=== PATIENT | female | born 1995 | race Caucasian/White ===

== ENCOUNTER 2016-07-15 22:47 | Emergency (ER) | payer BC, OTHER ==
[~2016-07-15] VITALS: Ht 167.6 cm; Wt 49.9 kg
[2016-07-15] MEDS ORDERED: bcp (22:58)
[2016-07-15] MEDS ORDERED: NITR-65 PO (22:58)
[2016-07-15] MEDS ORDERED: PHEN-640 PO (22:58)
[2016-07-15 23:22] LABS: KETONES,URINE NEGATIVE (NEGATIVE); LEUKOCYTE ESTERASE ,URINE NEGATIVE (NEGATIVE); NITRITE,URINE POSITIVE (NEGATIVE); PH,URINE 5 (5-9); PROTEIN,URINE 2+ (NEGATIVE); UROBILINOGEN,URINE 8 MG/DL (NORMAL)
[2016-07-15 23:28] LABS: BILIRUBIN,URINE 3+ (NEGATIVE)
[2016-07-15 23:30] LABS: WBC,URINE 0-2 /HPF
[2016-07-15] MEDS ORDERED: KETOROLAC 30 MG/ML VIAL IVP STA (23:33)
[2016-07-15] MEDS ORDERED: LACTATED RINGERS 1,000 ML IV ONE (23:33)
[2016-07-15] MEDS ORDERED: ONDANSETRON 4 MG/2 ML (SDV) Z0FRAN IVP ONE (23:45)
[2016-07-15 23:53] LABS: BASOPHILS % (AUTO) 0 % (0-10); EOSINOPHILS % (AUTO) 0 % (0-10); LYMPHOCYTES # (AUTO) 1.8 X 10^3 (1.0-4.0); LYMPHOCYTES % (AUTO) 21 % (12-44); MEAN CORPUSCULAR HEMOGLOBIN 29 PG (25-34); MEAN CORPUSCULAR HGB CONC 34 G/DL (32-36); MEAN CORPUSCULAR VOLUME 85 FL (80-99); MEAN PLATELET VOLUME 9.5 FL (7.4-10.4); MONOCYTES # (AUTO) 0.6 X 10^3 (0.0-1.0); MONOCYTES % (AUTO) 7 % (0-12); NEUTROPHILS # (AUTO) 6.1 X 10^3 (1.8-7.8); NEUTROPHILS % (AUTO) 72 % (42-75); PLATELET COUNT 232 10^3/uL (130-400); RED BLOOD COUNT 4.77 10^6/uL (4.35-5.85); RED CELL DISTRIBUTION WIDTH 13.7 % (10.0-14.5); WHITE BLOOD COUNT 8.5 10^3/uL (4.3-11.0)
--- NOTE | 2016-07-15 23:58 | ED GU-Female ---
General Chief Complaint: Abdominal/GI Problems Stated Complaint: LOWER BACK PAIN,N,V Nursing Triage Note: c/o L flank pain and emesis x 2. patient reports being diagnosed with UTI today and starting meds for that Nursing Sepsis Screen: No Definite Risk Source: patient History of Present Illness Time seen by provider: 23:10 Initial Comments C/O LEFT FLANK PAIN SINCE NOON, BECAME SEVERE AROUND 2200 TONIGHT--RATES PAIN 8/ 10 BEGAN HAVING NAUSEA AND VOMITING AT 2200 WELL, WHEN PAIN BEGAN NO FEVER WAS DX WITH UTI EARLIER TODAY AT [facility]--RX MACROBID AND PYRIDIUM STATES SHE HAD SOME MILD URINARY FREQUENCY AND "SLIGHT STINGING" ON URINATION THIS AM. NO OBVIOUS BLOOD IN URINE THIS AM. TOOK PYRIDIUM THIS AFTERNOON, SO COULD NOT TELL IF THERE WAS BLOOD IN URINE AFTER TAKING THAT. NO HISTORY OF SIMILAR MOM WITH HISTORY OF KIDNEY STONES LMP 3 WEEKS AGO, ON [facility] Allergies and Home Medications Allergies Coded Allergies: Penicillins (Unverified Allergy, Intermediate, RASH, 05/09/10) Home Medications (Reported) Hydrocodone/Ibuprofen 1 Each Tablet #20 1-2 EACH PO Q4H Prescribed by: CINDI FOLEY on 07/16/16135 Nitrofurantoin Monohyd/M-Cryst 100 Mg Capsule 1 TAB PO (Reported) Ondansetron 4 Mg Tab.rapdis #10 4 MG PO Q4H Prescribed by: CINDI FOLEY on 07/16/16135 Phenazopyridine HCl 200 Mg Tablet 1 TAB PO (Reported) Constitutional: no symptoms reported Respiratory: no symptoms reported Cardiovascular: no symptoms reported Gastrointestinal: see HPI nausea vomiting Genitourinary: see HPI flank pain : No LMP: Jun 24, 2016 Musculoskeletal: see HPI back pain Skin: no symptoms reported Psychiatric/Neurological: No Symptoms Reported Endocrine: No Symptoms Reported Hematologic/Lymphatic: No Symptoms Reported Past Kvbmadm-Osxxsz-Mabuna Hx Patient Social History Alcohol Use: Denies Use Recreational Drug Use: No Smoking Status: Never a Smoker 2nd Hand Smoke Exposure: No Recent Foreign Travel: No Contact w/Someone Who Travel: No Recent Infectious Disease Expo: No Recent Hopitalizations: No Surgeries HX Surgeries: Yes (LEFT KNEE SCOPE--ACL AND MENISCUS REPAIR) Surgeries: Gallbladder, Orthopedic Respiratory Hx Respiratory Disorders: Yes Respiratory Disorders: Asthma Cardiovascular Hx Cardiac Disorders: No Neurological Hx Neurological Disorders: No Reproductive System : No Female Reproductive Disorders: Denies Genitourinary Hx Genitourinary Disorders: No Gastrointestinal Hx Gastrointestinal Disorders: Yes (BAILEY) Gastrointestinal Disorders: Gall Bladder Disease Musculoskeletal Hx Musculoskeletal Disorders: No HEENT HX ENT Disorders: No Cancer Hx Cancer: No Psychosocial Hx Psychiatric Problems: No Integumentary HX Skin/Integumentary Disorder: No Blood Transfusions Hx Blood Disorders: No Physical Exam Vital Signs Vital Sign - Last 12Hours 07/15/16 22:55 Temp 97.9 Pulse 111 Resp 18 B/P 129/101 Pulse Ox 95 Capillary Refill : Less Than 3 Seconds General Appearance: mild distress other (LOOKS UNCOMFORTABLE, PACING, HOLDING LEFT FLANK BENT AT WAIST. VOMITED SEVERAL TIMES ON ARRIVAL TO ER AND IS DRY HEAVING NOW. ) thin Cardiovascular: normal peripheral pulses regular rate, rhythm no murmur Respiratory: normal breath sounds no respiratory distress no accessory muscle use Gastrointestinal: normal bowel sounds soft no organomegaly no pulsatile mass tenderness (MILD SUPRAPUBIC) Back: no vertebral tenderness CVA tenderness (L) Extremities: normal inspection Neurologic/Psychiatric: travel cota II-XII nml as tested no motor/sensory deficits alert oriented x 3 Skin: warm/dry pallor Progress/Results/Core Measures Results/Orders Lab Results Laboratory Tests Test 07/15/16 23:10 07/15/16 23:45 Range/Units Urine Bacteria FEW H /HPF Urine Bilirubin 3+ H NEGATIVE Urine Casts NONE /LPF Urine Clarity SLIGHTLY CLOUDY Urine Color ORANGE Urine Crystals NONE /LPF Urine Culture Indicated YES Urine Glucose (UA) NEGATIVE NEGATIVE Urine Ketones NEGATIVE NEGATIVE Urine Leukocyte Esterase NEGATIVE NEGATIVE Urine Mucus LARGE H /LPF Urine Nitrite POSITIVE H NEGATIVE Urine Test NEGATIVE NEGATIVE Urine Protein 2+ H NEGATIVE Urine RBC >100 H /HPF Urine RBC (Auto) 3+ H NEGATIVE Urine Specific [place] 1.020 1.016-1.022 Urine Squamous Epithelial Cells 2-5 /HPF Urine Urobilinogen 8 H NORMAL MG/DL Urine WBC 0-2 /HPF Urine pH 5 5-9 Alanine Aminotransferase (ALT/SGPT) 14 0-55 U/L Albumin 4.5 3.2-4.5 G/DL Alkaline Phosphatase 49 40-136 U/L Amylase Level 70 25-125 U/L Anion Gap 12 5-14 MMOL/L Aspartate Amino Transf (AST/SGOT) 19 5-34 U/L BUN/Creatinine Ratio 11 Basophils # (Auto) 0.0 0.0-0.1 10^3/uL Basophils (%) (Auto) 0 0-10 % Blood Urea Nitrogen 10 7-18 MG/DL Calcium Level 9.1 8.5-10.1 MG/DL Carbon Dioxide Level 22 21-32 MMOL/L Chloride Level 109 H 98-107 MMOL/L Creatinine 0.91 0.60-1.30 MG/DL Eosinophils # (Auto) 0.0 0.0-0.3 10^3/uL Eosinophils (%) (Auto) 0 0-10 % Estimat Glomerular Filtration Rate > 60 Glucose Level 112 H 70-105 MG/DL Hematocrit 41 35-52 % Hemoglobin 13.6 11.5-16.0 G/DL Lipase 28 8-78 U/L Lymphocytes # (Auto) 1.8 1.0-4.0 X 10^3 Lymphocytes (%) (Auto) 21 12-44 % Mean Corpuscular Hemoglobin 29 25-34 PG Mean Corpuscular Hemoglobin Concent 34 32-36 G/DL Mean Corpuscular Volume 85 80-99 FL Mean Platelet Volume 9.5 7.4-10.4 FL Monocytes # (Auto) 0.6 0.0-1.0 X 10^3 Monocytes (%) (Auto) 7 0-12 % Neutrophils # (Auto) 6.1 1.8-7.8 X 10^3 Neutrophils (%) (Auto) 72 42-75 % Platelet Count 232 130-400 10^3/uL Potassium Level 3.5 L 3.6-5.0 MMOL/L Red Blood Count 4.77 4.35-5.85 10^6/uL Red Cell Distribution Width 13.7 10.0-14.5 % Sodium Level 143 135-145 MMOL/L Total Bilirubin 0.7 0.1-1.0 MG/DL Total Protein 7.2 6.4-8.2 G/DL White Blood Count 8.5 4.3-11.0 10^3/uL My Orders Orders-CINDI FOLEY DO Ua Culture If Indicated (07/15/16 23:11) Hcg,Qualitative Urine (07/15/16 23:16) Urine Culture (07/15/16 23:10) Amylase (07/15/16 23:33) Cbc With Automated Diff (07/15/16 23:33) Comprehensive Metabolic Panel (07/15/16 23:33) Lipase (07/15/16 23:33) Saline Lock/Iv-Start (07/15/16 23:33) Lactated Ringers (Lr 1000 Ml Iv Solution (07/15/16 23:33) Ketorolac Injection (Toradol Injection) (07/15/16 23:33) Ondansetron Injection (Zofran Injectio (07/15/16 23:45) Acute Abd Series (07/16/16 00:01) Ct Abd/Pelvis Wo(Kidney Stone) (07/16/16 00:01) Ondansetron Injection (Zofran Injectio (07/16/16 01:00) Morphine Injection (Morphine Injection (07/16/16 00:56) Hydrocodone/Apap 5/325 Tablet (Lortab 5 (07/16/16 01:45) Rx-Ondansetron Po (Rx-Zofran Po) (07/16/16 01:31) Morphine Injection (Morphine Injection (07/16/16 01:31) Medications Given in ED Current Medications Medications Dose Ordered Sig/Macario Route Start Time Stop Time Status Last Admin Dose Admin Acetaminophen/ Hydrocodone Bitart 2 tab ONCE ONCE PO 07/16/16 01:45 07/16/16 01:46 DC 07/16/16 01:36 2 TAB Lactated Ringer's 1,000 ml @ 0 mls/hr Q0M ONCE IV 07/15/16 23:33 07/15/16 23:34 DC 07/15/16 23:45 0 MLS/HR Ondansetron HCl 4 mg ONCE ONCE IVP 07/15/16 23:45 07/15/16 23:46 DC 07/15/16 23:45 4 MG Ondansetron HCl 4 mg ONCE ONCE IVP 07/16/16 01:00 07/16/16 01:01 DC 07/16/16 00:52 4 MG Vital Signs/I&O Vital Sign - Last 12Hours 07/15/16 22:55 Temp 97.9 Pulse 111 Resp 18 B/P 129/101 Pulse Ox 95 Blood Pressure Mean: 110 Progress Note : Progress Note NO SIGNIFICANT IMPROVEMENT WITH TORADOL AND ZOFRAN GIVEN MORPHINE AND ADDITIONAL ZOFRAN WITH MUCH IMPROVEMENT IN SYMPTOMS PT COMFORTABLE GOING HOME Diagnostic Imaging Comments ACUTE ABDOMEN XRAYS--NO ACUTE PROCESS, PENDING RADIOLOGIST REVIEW CT ABDOMEN/PELVIS--NO RENAL OR URETERAL STONES, NO HYDRONEPHROSIS OR BLADDER ABNORMALITIES. -- PER [facility] VIA FAX @ [phone] Reviewed: Reviewed by Me Departure Impression Impression: Primary Impression: LEFT FLANK PAIN WITH HEMATURIA Additional Impressions: Urinary tract infection Renal colic on left side Disposition: HOME, SELF-CARE Condition: Improved Departure-Patient Inst. Referrals: [facility] (PCP/Family) Primary Care Physician Patient Instructions: Blood in the Urine (Hematuria), Adult (DC), Renal Colic ( DC), Urinary Tract Infection, Adult (DC) Add. Discharge Instructions: LOTS OF CLEAR LIQUIDS TAKE MACROBID AND PYRIDIUM PRESCRIBED STRAIN ALL URINE--RETURN ANY STONES TO [facility] FOLLOW UP WITH [facility] TOMORROW RETURN TO ER IF WORSE All discharge instructions reviewed with patient and/or family. Voiced understanding. Scripts Ondansetron (Zofran Odt)4 Mg Tab.rapdis4 Mg PO Q4H Nausea/Vomiting #10 TAB Prov:CINDI FOLEY DO 07/16/16 Hydrocodone/Ibuprofen (Hydrocodone-Ibuprofen 7.5-200)1 Each Tablet1-2 Each PO Q4H Pain #20 TAB Prov:CINDI FOLEY DO 07/16/16 CINDI FOLEY DO Jul 15, 2016 23:58
[2016-07-16 00:19] LABS: ALANINE AMINOTRANSFERASE 14 U/L (0-55); ALBUMIN 4.5 G/DL (3.2-4.5); AMYLASE 70 U/L (25-125); ANION GAP 12 MMOL/L (5-14); ASPARTATE AMINO TRANSFERASE 19 U/L (5-34); BILIRUBIN,TOTAL 0.7 MG/DL (0.1-1.0); BLOOD UREA NITROGEN 10 MG/DL (7-18); BUN/CREATININE RATIO 11; CALCIUM 9.1 MG/DL (8.5-10.1); CARBON DIOXIDE 22 MMOL/L (21-32); CHLORIDE 109 MMOL/L (98-107); CREATININE SERUM 0.91 MG/DL (0.60-1.30); GFR ESTIMATED > 60; GLUCOSE 112 MG/DL (70-105); LIPASE 28 U/L (8-78); POTASSIUM 3.5 MMOL/L (3.6-5.0); SODIUM 143 MMOL/L (135-145); TOTAL PROTEIN 7.2 G/DL (6.4-8.2)
[2016-07-16] MEDS ORDERED: morphine INJ 10 MG/ML 1ML (SYR OR VIAL) IVP STA ×2 (00:56→01:31)
[2016-07-16] MEDS ORDERED: ONDANSETRON 4 MG/2 ML (SDV) Z0FRAN IVP ONE (01:00)
[2016-07-16] MEDS ORDERED: RX-ONDANSETRON 4 MG ODT (ZOFRAN) PPK #4 PO STA (01:31)
[2016-07-16] MEDS ORDERED: HYDR-87 PO (01:36)
[2016-07-16] MEDS ORDERED: ONDA4TAB8 PO (01:36)
[2016-07-16] MEDS ORDERED: HYDROcodone/APAP 5 MG/325 MG (LORTAB) TAB PO ONE (01:45)
[2016-07-16 02:10] VITALS: BP 119/67
--- NOTE | 2016-07-16 06:11 | Diagnostic Imaging Report ---
PROCEDURE: CT urinary tract, rule out kidney stone. TECHNIQUE: Multiple contiguous axial images were obtained through the abdomen and pelvis without the use of intravenous contrast. INDICATION: Left flank pain and emesis Unenhanced images of the liver and spleen reveal no focal abnormality. Gallbladder surgically absent. There is no evidence of pancreatic or adrenal gland abnormality. Kidneys are unremarkable in appearance without evidence of mass or stone. There is no hydronephrosis or hydroureter. There are occasional calcifications in left hemipelvis which appear to be due to phleboliths. No localized inflammation is identified. There is fluid distention of several bowel loops which may be due to ileus. Note is made of right convexity thoracolumbar scoliotic curvature. There is no evidence of appendiceal inflammation. IMPRESSION: No evidence of urinary tract calculus or obstruction. Fluid distention of several small bowel loops may reflect ileus or enteritis. Otherwise, no acute abnormality is identified. Dictated by: Dictated on workstation # [id number]
--- NOTE | 2016-07-16 07:23 | Diagnostic Imaging Report ---
INDICATION: Left flank pain. FINDINGS: Supine and upright views of the abdomen are obtained with single view of the chest. The lungs are clear, bilaterally. There is moderate right convexity curvature of the spine centered at the thoracolumbar level. Bowel gas pattern is unremarkable. No pathologic abdominal calcification is seen. Surgical clips are seen in the region of gallbladder fossa. IMPRESSION: No acute abnormality is identified. Dictated by: Dictated on workstation # [id number]
[2016-07-17] MEDS ORDERED: CEFD300C3 PO (10:54)
[2016-07-17] MEDS ORDERED: ONDA8TAB9 PO (10:54)
== END 2016-07-16 02:09 | disposition home or self-care (01) ==
LOC: EDUNIT# 22:47 → ER 22:50
DX: M54.5 Low back pain (principal); N30.91 Cystitis, unspecified with hematuria; N23 Unspecified renal colic; R11.2 Nausea with vomiting, unspecified
CPT/HCPCS: 36415; 74022; 74176; 80053; 81000; 82150; 83690; 84703; 85025; 87088; 96361; 96374; 96375; 96376

== ENCOUNTER 2016-07-17 07:26 | Emergency (ER) | payer BC, OTHER ==
[~2016-07-17] VITALS: Ht 162.6 cm; Wt 45.4 kg
[~2016-07-17 07:26] MED LIST: HYDR-87 PO; NITR-65 PO; ONDA4TAB8 PO; PHEN-640 PO; bcp
--- OUTSIDE RECORDS SUMMARY | 2016-07-17 07:32 | XMS REPORT | Continuity of Care Document ---
Author Author [facility] Organization [facility] Address Unknown Phone Unavailable Care Team Providers Care Hog Ribber Name Role Phone [place], [facility] PCP Insurance Providers Payer Name Policy Number Subscriber Name Relationship [facility] [id number] Colby Ortiz 18 Father Advance Directives Directive Response Recorded Date/Time Advance Directives No 07/15/16 10:55pm Health Care Power of Rubber Splicer No 07/15/16 10:55pm Organ Donor Yes 07/15/16 10:55pm Resuscitation Status Full Code 07/15/16 10:55pm Chief Complaint and Reason for Visit Chief Complaint Abdominal/GI Problems Reason for Visit Urinary tract infection Renal colic on left side LEFT FLANK PAIN WITH HEMATURIA Problems Active Problems Medical Problem Onset Date Status Renal colic on left side Unknown Acute Urinary tract infection Unknown Acute Medications Current Home Medications Medication Dose Units Route Directions Days/Qty Instructions Start Date [Bcp] 07/15/16 Nitrofurantoin Monohyd/M-Cryst 100 Mg 1 Tab Oral 07/15/16 Phenazopyridine Hcl 200 Mg 1 Tab Oral 07/15/16 Hydrocodone/Ibuprofen 1 Each 1-2 Each Oral Every 4HRS for Pain 20 02/21 Ondansetron 4 Mg 4 Mg Oral Every 4HRS for Nausea/Vomiting 10 07/16/16 Social History Social History Problem Response Recorded Date/Time Alcohol Use Denies Use 07/15/2016 10:55pm Recreational Drug Use No 07/15/2016 10:55pm Recent Foreign Travel No 07/15/2016 10:55pm Recent Infectious Disease Exposure No 07/15/2016 10:55pm Hospitalization with Isolation Denies 07/15/2016 10:55pm Smoking Status Never a Smoker 07/15/2016 10:55pm Recent Hopitalizations No 07/15/2016 10:55pm Hospitalization with Isolation Denies 07/15/2016 10:55pm Query Response Start Date Stop Date Smoking Status Never a Smoker Hospital Discharge Instructions No hospital discharge instructions. Plan of Care Discharge Date 07/16/16 2:09am Disposition 01 HOME, SELF-CARE Condition at Discharge Improved Instructions/Education Provided Urinary Tract Infection, Adult (DC) Renal Colic (DC) Blood in the Urine (Hematuria), Adult (DC) Prescriptions See Medication Section Referrals [facility] - Primary Care Physician Additional Instructions/Education LOTS OF CLEAR LIQUIDS TAKE MACROBID AND PYRIDIUM PRESCRIBED STRAIN ALL URINE--RETURN ANY STONES TO [facility] FOLLOW UP WITH [facility] TOMORROW RETURN TO ER IF WORSE All discharge instructions reviewed with patient and/or family. Voiced understanding. Functional Status No functional status results. Allergies, Adverse Reactions, Alerts Allergen Type Severity Reaction Status Last Updated Penicillins ([id number]) Allergy Intermediate RASH Active 05/09/10 Immunizations No immunization records. Vital Signs Acute Vital Signs Vital Response Date/Time Temperature (Fahrenheit) 97.9 degrees F (97.6 - 99.5) 07/15/2016 10:55pm Temperature (Calculated Celsius) 36.94649 degrees C (36.4 - 37.5) 07/15/2016 10:55pm Pulse Rate (adult) 111 bpm (60 - 90) 07/15/2016 10:55pm Respiratory Rate 18 bpm (12 - 24) 07/15/2016 10:55pm O2 Sat by Pulse Oximetry 95 % (88 - 100) 07/15/2016 10:55pm Blood Pressure 129/101 mm Hg 07/15/2016 10:55pm Blood Pressure Mean 110 mm Hg 07/15/2016 10:55pm Pain Numeric Pain Scale 8 07/16/2016 1:36am Pain Numeric Pain Scale 9 07/16/2016 1:36am Height (Feet) 5 feet 07/15/2016 10:55pm Height (Inches) 6.00 inches 07/15/2016 10:55pm Height (Calculated Centimeters) 167.937239 cm 07/15/2016 10:55pm Weight (Pounds) 110 pounds 07/15/2016 10:55pm Weight (Ounces) 0.0 oz 07/15/2016 10:55pm Weight (Calculated Grams) 54375.384 gm 07/15/2016 10:55pm Weight (Calculated Kilograms) 49.585678 kilograms 07/15/2016 10:55pm Capillary Refill Capillary Refill Less Than 3 Seconds 07/15/2016 10:55pm Height 5 ft 6 in Weight 110 lb Body Mass Index 17.8 kg/m^2 Results Laboratory Results Test Name Result Units Flags Reference Collection Date/Time Result Date/ Time Comments White Blood Count 8.5 10^3/uL 4.3-11.0 07/15/2016 11:45pm 07/15/2016 11 :54pm Red Blood Count 4.77 10^6/uL 4.35-5.85 07/15/2016 11:45pm 07/15/2016 11 :54pm Hemoglobin 13.6 G/DL 11.5-16.0 07/15/2016 11:45pm 07/15/2016 11:54pm Hematocrit 41 % 35-52 07/15/2016 11:45pm 07/15/2016 11:54pm Mean Corpuscular Volume 85 FL 80-99 07/15/2016 11:45pm 07/15/2016 11: 54pm Mean Corpuscular Hemoglobin 29 PG 25-34 07/15/2016 11:45pm 07/15/2016 11:54pm Mean Corpuscular Hemoglobin Concent 34 G/DL 32-36 07/15/2016 11:45pm 11:54pm Red Cell Distribution Width 13.7 % 10.0-14.5 07/15/2016 11:45pm 2016 11:54pm Platelet Count 232 10^3/uL 130-400 07/15/2016 11:45pm 07/15/2016 11: 54pm Mean Platelet Volume 9.5 FL 7.4-10.4 07/15/2016 11:45pm 07/15/2016 11: 54pm Neutrophils (%) (Auto) 72 % 42-75 07/15/2016 11:45pm 07/15/2016 11: 54pm Lymphocytes (%) (Auto) 21 % 12-44 07/15/2016 11:45pm 07/15/2016 11: 54pm Monocytes (%) (Auto) 7 % 0-12 07/15/2016 11:45pm 07/15/2016 11:54pm Eosinophils (%) (Auto) 0 % 0-10 07/15/2016 11:45pm 07/15/2016 11:54pm Basophils (%) (Auto) 0 % 0-10 07/15/2016 11:45pm 07/15/2016 11:54pm Neutrophils # (Auto) 6.1 X 10^3 1.8-7.8 07/15/2016 11:45pm 07/15/2016 11:54pm Lymphocytes # (Auto) 1.8 X 10^3 1.0-4.0 07/15/2016 11:45pm 07/15/2016 11:54pm Monocytes # (Auto) 0.6 X 10^3 0.0-1.0 07/15/2016 11:45pm 07/15/2016 11: 54pm Eosinophils # (Auto) 0.0 10^3/uL 0.0-0.3 07/15/2016 11:45pm 07/15/2016 11:54pm Basophils # (Auto) 0.0 10^3/uL 0.0-0.1 07/15/2016 11:45pm 07/15/2016 11 :54pm Urine Color ORANGE 07/15/2016 11:10pm 07/15/2016 11:30pm DIPSTICK RESULTS MAY BE ERRONEOUS DUE TO SPECIMEN COLOR Urine Clarity SLIGHTLY CLOUDY 07/15/2016 11:10pm 07/15/2016 11: 30pm Urine pH 5 5-9 07/15/2016 11:10pm 07/15/2016 11:30pm Urine Specific [place] 1.020 1.016-1.022 07/15/2016 11:10pm 2016 11:30pm Urine Protein 2+ * NEGATIVE 07/15/2016 11:10pm 07/15/2016 11:30pm Urine Glucose (UA) NEGATIVE NEGATIVE 07/15/2016 11:10pm 07/15/2016 11 :30pm Urine RBC (Auto) 3+ * NEGATIVE 07/15/2016 11:10pm 07/15/2016 11:30pm Urine Ketones NEGATIVE NEGATIVE 07/15/2016 11:10pm 07/15/2016 11: 30pm Urine Nitrite POSITIVE * NEGATIVE 07/15/2016 11:10pm 07/15/2016 11: 30pm Urine Bilirubin 3+ * NEGATIVE 07/15/2016 11:10pm 07/15/2016 11:30pm ICTOTEST NEGATIVE Urine Urobilinogen 8 MG/DL * NORMAL 07/15/2016 11:10pm 07/15/2016 11: 30pm Urine Leukocyte Esterase NEGATIVE NEGATIVE 07/15/2016 11:10pm 2016 11:30pm Urine RBC >100 /HPF * 07/15/2016 11:10pm 07/15/2016 11:30pm Urine WBC 0-2 /HPF 07/15/2016 11:10pm 07/15/2016 11:30pm Urine Bacteria FEW /HPF * 07/15/2016 11:10pm 07/15/2016 11:30pm Urine Squamous Epithelial Cells 2-5 /HPF 07/15/2016 11:10pm 2016 11:30pm Urine Crystals NONE /LPF 07/15/2016 11:10pm 07/15/2016 11:30pm Urine Casts NONE /LPF 07/15/2016 11:10pm 07/15/2016 11:30pm Urine Mucus LARGE /LPF * 07/15/2016 11:10pm 07/15/2016 11:30pm Urine Culture Indicated YES 07/15/2016 11:10pm 07/15/2016 11:30pm Sodium Level 143 MMOL/L 135-145 07/15/2016 11:45pm 07/16/2016 12:22am Potassium Level 3.5 MMOL/L L 3.6-5.0 07/15/2016 11:45pm 07/16/2016 12: 22am Chloride Level 109 MMOL/L H 98-107 07/15/2016 11:45pm 07/16/2016 12:22am Carbon Dioxide Level 22 MMOL/L 21-32 07/15/2016 11:45pm 07/16/2016 12: 22am Anion Gap 12 MMOL/L 5-14 07/15/2016 11:45pm 07/16/2016 12:22am Blood Urea Nitrogen 10 MG/DL 7-18 07/15/2016 11:45pm 07/16/2016 12: 22am Creatinine 0.91 MG/DL 0.60-1.30 07/15/2016 11:45pm 07/16/2016 12:22am BUN/Creatinine Ratio 11 07/15/2016 11:45pm 07/16/2016 12:22am Estimat Glomerular Filtration Rate > 60 07/15/2016 11:45pm 2016 12:22am GFR INTERPRETIVE DATA UNITS FOR ESTIMATED GFR (eGFR): mL/min/1.73 M2 REFERENCE RANGE FOR ESTIMATED GFR (eGFR) eGFR NORMAL eGFR >60 MODERATELY DECREASED eGFR 30-59 SEVERLY DECREASED eGFR 15-29 KIDNEY FAILURE <15 (OR DIALYSIS) Glucose Level 112 MG/DL H 70-105 07/15/2016 11:45pm 07/16/2016 12:22am Calcium Level 9.1 MG/DL 8.5-10.1 07/15/2016 11:45pm 07/16/2016 12:22am Total Bilirubin 0.7 MG/DL 0.1-1.0 07/15/2016 11:45pm 07/16/2016 12: 22am Alkaline Phosphatase 49 U/L 40-136 07/15/2016 11:45pm 07/16/2016 12: 22am Aspartate Amino Transf (AST/SGOT) 19 U/L 5-34 07/15/2016 11:45pm 2016 12:22am Alanine Aminotransferase (ALT/SGPT) 14 U/L 0-55 07/15/2016 11:45pm 02/2017 12:22am Total Protein 7.2 G/DL 6.4-8.2 07/15/2016 11:45pm 07/16/2016 12:22am Albumin 4.5 G/DL 3.2-4.5 07/15/2016 11:45pm 07/16/2016 12:22am Amylase Level 70 U/L 25-125 07/15/2016 11:45pm 07/16/2016 12:22am Lipase 28 U/L 8-78 07/15/2016 11:45pm 07/16/2016 12:22am Procedures No known history of procedures. Encounters Encounter Location Arrival/Admit Date Discharge/Depart Date Attending Provider Departed Emergency Room [facility] 07/15/16 10:50pm 02/21 2:09am CINDI FOLEY DO Recent Diagnosis
[2016-07-17 07:50] LABS: KETONES,URINE NEGATIVE (NEGATIVE); LEUKOCYTE ESTERASE ,URINE NEGATIVE (NEGATIVE); NITRITE,URINE POSITIVE (NEGATIVE); PH,URINE 5 (5-9); PROTEIN,URINE 2+ (NEGATIVE); UROBILINOGEN,URINE 12 MG/DL (NORMAL)
[2016-07-17 07:57] LABS: BASOPHILS % (AUTO) 0 % (0-10); EOSINOPHILS % (AUTO) 0 % (0-10); LYMPHOCYTES # (AUTO) 0.9 X 10^3 (1.0-4.0); LYMPHOCYTES % (AUTO) 9 % (12-44); MEAN CORPUSCULAR HEMOGLOBIN 29 PG (25-34); MEAN CORPUSCULAR HGB CONC 33 G/DL (32-36); MEAN CORPUSCULAR VOLUME 86 FL (80-99); MEAN PLATELET VOLUME 9.2 FL (7.4-10.4); MONOCYTES # (AUTO) 1.1 X 10^3 (0.0-1.0); MONOCYTES % (AUTO) 10 % (0-12); NEUTROPHILS # (AUTO) 8.2 X 10^3 (1.8-7.8); NEUTROPHILS % (AUTO) 81 % (42-75); PLATELET COUNT 181 10^3/uL (130-400); RED BLOOD COUNT 4.49 10^6/uL (4.35-5.85); RED CELL DISTRIBUTION WIDTH 13.4 % (10.0-14.5); WHITE BLOOD COUNT 10.2 10^3/uL (4.3-11.0)
[2016-07-17] MEDS ORDERED: NS IV 1000 ML 1,000 ML IV ONE (08:14)
[2016-07-17 08:16] LABS: ALBUMIN 3.8 G/DL (3.2-4.5); BILIRUBIN,TOTAL 1.1 MG/DL (0.1-1.0); CALCIUM 8.6 MG/DL (8.5-10.1); CREATININE SERUM 1.37 MG/DL (0.60-1.30); POTASSIUM 3.6 MMOL/L (3.6-5.0); TOTAL PROTEIN 6.1 G/DL (6.4-8.2)
[2016-07-17 08:20] LABS: BILIRUBIN,URINE 3+ (NEGATIVE)
[2016-07-17] MEDS ORDERED: ONDANSETRON 4 MG/2 ML (SDV) Z0FRAN IVP ONE (08:45)
[2016-07-17] MEDS ORDERED: cefTRIAXone INJECTION 1,000 MG in NS (IVPB) 50 ML IV ONE (08:45)
[2016-07-17] MEDS ORDERED: fentaNYL INJECTION 100 MCG/2 ML AMP IVP ONE (08:45)
[2016-07-17] MEDS ORDERED: KETOROLAC 30 MG/ML VIAL IVP ONE (09:15)
[2016-07-17] MEDS ORDERED: NS IV 1000 ML 1,000 ML IV SCH (09:15)
[2016-07-17] MEDS ORDERED: PROMETHAZINE INJ 25 MG/ML (PHENERGAN) AMP IVP ONE (09:15)
--- NOTE | 2016-07-17 09:27 | ED GU-Female ---
General Chief Complaint: Abdominal/GI Problems Stated Complaint: LEFT FLANK PAIN/VOMITING BLOOD Nursing Triage Note: AMBULATED TO ROOM 07 WITH MULTIPLE COMPLAINTS. STATES SHE WAS SEEN ON WED ET DX WITH KIDNEY STONES. PT DOES NOT THINK SHE HAS PASSED THEM ET IS STILL HAVING PAIN ON THE LEFT SIDE ALONG WITH SEEING BLOOD IN HER URINE AND SHE STATES SHE THREW UP TODAY AND IT WAS BLOODY. Nursing Sepsis Screen: No Definite Risk Source: patient Exam Limitations: no limitations History of Present Illness Time seen by provider: 09:23 Initial Comments The patient is a 21-year-old white female student at [employer]. She was seen here on 07/15 with complaints of blood in the urine and left flank pain. She had been seen at the [facility] prior to coming here. UA showed florid RBCs but minimum WBCs. CT scan did not confirm a stone. She was placed on Macrodantin and Pyridium. She thought that yesterday she was feeling better but today awakened with more pain and vomited with blood. The urine was a dark orange by her estimation and ours. Timing/Duration: other (Saturday 07/15) Severity/Quality: moderate Location: left flank Modifying Factors: Improves With Vomiting Associated Symptoms: diaphoresis nausea/vomiting Allergies and Home Medications Allergies Coded Allergies: Penicillins (Unverified Allergy, Intermediate, RASH, 05/09/10) Home Medications (Reported) Hydrocodone/Ibuprofen 1 Each Tablet #20 1-2 EACH PO Q4H Prescribed by: CINDI FOLEY on 07/16/16135 Nitrofurantoin Monohyd/M-Cryst 100 Mg Capsule 1 TAB PO (Reported) Ondansetron 4 Mg Tab.rapdis #10 4 MG PO Q4H Prescribed by: CINDI FOLEY on 07/16/16135 Phenazopyridine HCl 200 Mg Tablet 1 TAB PO (Reported) Constitutional: see HPI EENTM: no symptoms reported Respiratory: no symptoms reported Cardiovascular: no symptoms reported Gastrointestinal: nausea vomiting Genitourinary: burning flank pain hematuria urgency Musculoskeletal: no symptoms reported Skin: no symptoms reported Psychiatric/Neurological: No Symptoms Reported Endocrine: No Symptoms Reported Hematologic/Lymphatic: No Symptoms Reported Past Hdrpvns-Xudfgf-Iilmzd Hx Patient Social History Alcohol Use: Denies Use Recreational Drug Use: No Smoking Status: Never a Smoker 2nd Hand Smoke Exposure: No Recent Foreign Travel: No Contact w/Someone Who Travel: No Recent Infectious Disease Expo: No Recent Hopitalizations: Yes (ER VISIT ON WED. ) Surgeries HX Surgeries: Yes (LEFT KNEE SCOPE--ACL AND MENISCUS REPAIR) Surgeries: Gallbladder, Orthopedic Respiratory Hx Respiratory Disorders: Yes Respiratory Disorders: Asthma Cardiovascular Hx Cardiac Disorders: No Neurological Hx Neurological Disorders: No Reproductive System Female Reproductive Disorders: Denies Genitourinary Hx Genitourinary Disorders: No Gastrointestinal Hx Gastrointestinal Disorders: Yes (BAILEY) Gastrointestinal Disorders: Gall Bladder Disease Musculoskeletal Hx Musculoskeletal Disorders: No HEENT HX ENT Disorders: No Cancer Hx Cancer: No Psychosocial Hx Psychiatric Problems: No Integumentary HX Skin/Integumentary Disorder: No Blood Transfusions Hx Blood Disorders: No Physical Exam Vital Signs Vital Sign - Last 12Hours 07/17/16 07:38 Temp 98.0 Pulse 71 Resp 18 B/P 119/92 Pulse Ox 98 O2 Delivery Room Air Capillary Refill : Less Than 3 Seconds General Appearance: moderate distress HEENT: PERRL/EOMI normal ENT inspection TMs normal pharynx normal Neck: full range of motion Cardiovascular: normal peripheral pulses regular rate, rhythm no edema no gallop no JVD no murmur Respiratory: chest non-tender lungs clear normal breath sounds no respiratory distress no accessory muscle use respiratory distress Gastrointestinal: normal bowel sounds non tender soft no organomegaly no pulsatile mass abnormal bowel sounds Back: no CVA tenderness Extremities: normal range of motion non-tender normal inspection no pedal edema no calf tenderness normal capillary refill pelvis stable 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 no motor/sensory deficits alert normal mood/affect oriented x 3 Skin: normal color warm/dry cyanosis cool diaphoresis pallor Progress/Results/Core Measures Results/Orders Lab Results Laboratory Tests Test 07/17/16 07:43 07/17/16 07:52 Range/Units Urine Bacteria FEW H /HPF Urine Bilirubin 3+ H NEGATIVE Urine Casts NONE /LPF Urine Clarity CLEAR Urine Color ORANGE Urine Crystals NONE /LPF Urine Culture Indicated YES Urine Glucose (UA) NEGATIVE NEGATIVE Urine Ketones NEGATIVE NEGATIVE Urine Leukocyte Esterase NEGATIVE NEGATIVE Urine Mucus NEGATIVE /LPF Urine Nitrite POSITIVE H NEGATIVE Urine Protein 2+ H NEGATIVE Urine RBC 5-10 H /HPF Urine RBC (Auto) 1+ H NEGATIVE Urine Specific [place] 1.020 1.016-1.022 Urine Squamous Epithelial Cells 10-25 H /HPF Urine Urobilinogen 12 H NORMAL MG/DL Urine WBC 10-25 H /HPF Urine pH 5 5-9 Alanine Aminotransferase (ALT/SGPT) 9 0-55 U/L Albumin 3.8 3.2-4.5 G/DL Alkaline Phosphatase 44 40-136 U/L Anion Gap 9 5-14 MMOL/L Aspartate Amino Transf (AST/SGOT) 19 5-34 U/L BUN/Creatinine Ratio 6 Basophils # (Auto) 0.0 0.0-0.1 10^3/uL Basophils (%) (Auto) 0 0-10 % Blood Urea Nitrogen 8 7-18 MG/DL Calcium Level 8.6 8.5-10.1 MG/DL Carbon Dioxide Level 24 21-32 MMOL/L Chloride Level 106 98-107 MMOL/L Creatinine 1.37 H 0.60-1.30 MG/DL Eosinophils # (Auto) 0.0 0.0-0.3 10^3/uL Eosinophils (%) (Auto) 0 0-10 % Estimat Glomerular Filtration Rate 48 Glucose Level 93 70-105 MG/DL Hematocrit 38 35-52 % Hemoglobin 12.8 11.5-16.0 G/DL Lymphocytes # (Auto) 0.9 L 1.0-4.0 X 10^3 Lymphocytes (%) (Auto) 9 L 12-44 % Mean Corpuscular Hemoglobin 29 25-34 PG Mean Corpuscular Hemoglobin Concent 33 32-36 G/DL Mean Corpuscular Volume 86 80-99 FL Mean Platelet Volume 9.2 7.4-10.4 FL Monocytes # (Auto) 1.1 H 0.0-1.0 X 10^3 Monocytes (%) (Auto) 10 0-12 % Neutrophils # (Auto) 8.2 H 1.8-7.8 X 10^3 Neutrophils (%) (Auto) 81 H 42-75 % Platelet Count 181 130-400 10^3/uL Potassium Level 3.6 3.6-5.0 MMOL/L Red Blood Count 4.49 4.35-5.85 10^6/uL Red Cell Distribution Width 13.4 10.0-14.5 % Sodium Level 139 135-145 MMOL/L Total Bilirubin 1.1 H 0.1-1.0 MG/DL Total Protein 6.1 L 6.4-8.2 G/DL White Blood Count 10.2 4.3-11.0 10^3/uL My Orders Orders-ANNA PATEL MD Cbc With Automated Diff (07/17/16 07:42) Comprehensive Metabolic Panel (07/17/16 07:42) Ua Culture If Indicated (07/17/16 07:42) Urine Culture (07/17/16 07:43) Saline Lock/Iv-Start (07/17/16 08:14) Ns Iv 1000 Ml (Sodium Chloride 0.9%) (07/17/16 08:14) Ceftriaxone Injection (Rocephin Injectio (07/17/16 08:45) Fentanyl Injection (Sublimaze Injection (07/17/16 08:45) Ondansetron Injection (Zofran Injectio (07/17/16 08:45) Ketorolac Injection (Toradol Injection) (07/17/16 09:15) Promethazine Injection (Phenergan Injec (07/17/16 09:15) Ns Iv 1000 Ml (Sodium Chloride 0.9%) (07/17/16 09:15) Medications Given in ED Current Medications Medications Dose Ordered Sig/Macario Route Start Time Stop Time Status Last Admin Dose Admin Ceftriaxone Sodium/Sodium Chloride 50 ml @ 100 mls/hr ONCE ONCE IV 07/17/16 08:45 07/17/16 09:14 DC 07/17/16 08:39 100 MLS/HR Fentanyl Citrate 50 mcg ONCE ONCE IVP 07/17/16 08:45 07/17/16 08:46 DC 07/17/16 08:39 50 MCG Ketorolac Tromethamine 30 mg ONCE ONCE IVP 07/17/16 09:15 07/17/16 09:16 DC 07/17/16 09:20 30 MG Ondansetron HCl 8 mg ONCE ONCE IVP 07/17/16 08:45 07/17/16 08:46 DC 07/17/16 08:39 8 MG Promethazine HCl 25 mg ONCE ONCE IVP 07/17/16 09:15 07/17/16 09:16 DC 07/17/16 09:26 25 MG Sodium Chloride 1,000 ml @ 0 mls/hr Q0M ONCE IV 07/17/16 08:14 07/17/16 08:15 DC 07/17/16 08:20 1,000 MLS/HR Vital Signs/I&O Vital Sign - Last 12Hours 07/17/16 07:38 Temp 98.0 Pulse 71 Resp 18 B/P 119/92 Pulse Ox 98 O2 Delivery Room Air Blood Pressure Mean: 101 Departure Communication Progress Notes I discussed the patient with Dr. Jones the [facility] physician. She and I concluded that hydration Phenergan and a dose of IV antibiotics would be a good plan. This appeared to make inroads in the patient's complaints. I also discussed this with Dr. Del Angel and he believes that this will work however if symptoms increase she should return and finally he would be glad to see her next week and follow up if there are question Impression Impression: Primary Impression: urinary tract infection Disposition: HOME, SELF-CARE Condition: Improved Departure-Patient Inst. Decision time for Depature: 10:42 Referrals: [facility] (PCP) Primary Care Physician Patient Instructions: Urinary Tract Infections in Adults Add. Discharge Instructions: All discharge instructions reviewed with patient and/or family. Voiced understanding. Take Omnicef as prescribed. If not clearly better by Wednesday make appointment with Dr. Del Angel Use Zofran for nausea. Lots of fluids with a goal of urinating at least every 3-4 hours. Scripts Ondansetron (Zofran Odt)8 Mg Tab.rapdis8 Mg PO every 4 hours #10 TAB Prov:ANNA PATEL MD 07/17/16 Cefdinir 300 Mg [id number] Mg PO twice a day #20 CAP Prov:ANNA PATEL MD 07/17/16 ANNA PATEL MD Jul 17, 2016 09:27
[2016-07-17] MEDS ORDERED: ONDA8TAB9 PO (10:54)
[2016-07-17] MEDS ORDERED: CEFD300C3 PO (10:54)
[2016-07-17 11:08] VITALS: BP 105/58
== END 2016-07-17 11:08 | disposition home or self-care (01) ==
LOC: EDUNIT# 07:26 → ER 07:28
DX: N30.91 Cystitis, unspecified with hematuria (principal)
CPT/HCPCS: 36415; 80053; 81000; 85025; 87088; 96361; 96365; 96375